=== PATIENT | female | born 1960 | race Caucasian/White ===

== ENCOUNTER 2018-09-21 17:30 | Emergency (ER) | payer MEDICAID ==
[~2018-09-21] VITALS: Ht 149.9 cm; Wt 65.8 kg
[2018-09-21 17:30] VITALS: BP 122/58
[~2018-09-21 17:30] MED LIST: ADVAIR; ALBUPOW26; NORCO; SERAQUIL; SOMA
[2018-09-21 18:34] LABS: Chloride 106 mmol/L (98-107); Potassium 3.9 mmol/L (3.5-5.1); Sodium 140 mmol/L (136-145)
[2018-09-21 18:41] LABS: Basophils # (auto) 0 uL; Basophils % (auto) 0.5 % (0.0-2.0); Eosinophils # (auto) 0.6 uL; Eosinophils % (auto) 9.8 % (0.0-7.0); Hematocrit 38.3 % (36.0-46.0); Lymphocytes # (auto) 1.8 uL; Lymphocytes % (auto) 27.7 % (10.0-50.0); Mean Corpuscular Hemoglobin 31.8 pg (28.0-32.0); Mean Corpuscular Hgb Conc. 33.9 g/dL (32.0-36.0); Mean Corpuscular Volume 93.9 fL (80.0-100.0); Monocytes # (auto) 0.6 uL; Monocytes % (auto) 9.6 % (0.0-12.0); Neutrophils # (auto) 3.4 uL; Neutrophils % (auto) 52.4 % (37.0-80.0); Platelet Count (auto) 231 10^3/uL (140-450); Red Blood Cells 4.08 10^6/uL (4.0-5.20); Red Cell Distribution Width 14.1 % (11.8-14.3); White Blood Cell 6.6 10^3/uL (4.4-10.8)
[2018-09-21 18:51] LABS: Alanine Aminotransferase 34 U/L (13-56); Albumin 3.6 g/dL (3.4-5.0); Alkaline Phosphatase 77 U/L (45-117); Anion Gap 6 (5-15); Aspartate Aminotransferase 24 U/L (15-37); BUN/Creatinine Ratio 30.8; Bilirubin, Total 0.2 mg/dL (0.2-1.0); Blood Urea Nitrogen 24 mg/dL (7-18); Calcium 8.7 mg/dL (8.5-10.1); Carbon Dioxide 28 mmol/L (21-32); GFR African American 98 mL/min; GFR Non-African American 81 mL/min; Glucose 91 mg/dL (74-106); Magnesium 2.3 mg/dL (1.6-2.6); Total Protein 7.4 g/dL (6.4-8.2)
[2018-09-21] MEDS ORDERED: methylPREDNISolone SOD SUCC 125 MG/2 ML VL IV ONE (19:45)
[2018-09-21] MEDS ORDERED: ALBUTEROL SULF 2.5 MG/0.5ML(0.5%) NEB SOLN HHN ONE (19:45)
[2018-09-21] MEDS ORDERED: IPRATROPIUM BROM 0.5 MG/2.5ML INH SOL HHN ONE (19:45)
== END 2018-09-21 21:27 | disposition home or self-care (01) ==
LOC: MERGE 17:36 → ER 17:36
DX: J45.901 Unspecified asthma with (acute) exacerbation (principal); F41.9 Anxiety disorder, unspecified; J45.909 Unspecified asthma, uncomplicated; F32.9 Major depressive disorder, single episode, unspecified; E11.9 Type 2 diabetes mellitus without complications; E78.5 Hyperlipidemia, unspecified; F17.210 Nicotine dependence, cigarettes, uncomplicated; G40.909 Epilepsy, unspecified, not intractable, without status epilepticus
CPT/HCPCS: 36415; 71046; 80053; 83735; 84484; 85025; 93005; 94644; 94761; 96374; 99285; J2930; J7611; J7644; 94640

== ENCOUNTER 2019-03-09 09:53 | Emergency (ER) | payer MEDICAID ==
[~2019-03-09] VITALS: Ht 147.3 cm; Wt 67.1 kg
[2019-03-09 10:18] VITALS: BP 131/79
[2019-03-09 10:27] LABS: Basophils # (auto) 0.1 uL; Eosinophils # (auto) 1.1 uL; Eosinophils % (auto) 13.5 % (0.0-7.0); Hematocrit 40.8 % (36.0-46.0); Hemoglobin 13.5 g/dL (12.2-16.2); Lymphocytes # (auto) 1.4 uL; Lymphocytes % (auto) 16.9 % (10.0-50.0); Mean Corpuscular Hemoglobin 30.4 pg (28.0-32.0); Mean Corpuscular Hgb Conc. 33.2 g/dL (32.0-36.0); Mean Corpuscular Volume 91.8 fL (80.0-100.0); Monocytes # (auto) 0.4 uL; Monocytes % (auto) 4.8 % (0.0-12.0); Neutrophils # (auto) 5.1 uL; Neutrophils % (auto) 63.8 % (37.0-80.0); Platelet Count (auto) 308 10^3/uL (140-450); Red Blood Cells 4.44 10^6/uL (4.0-5.20); Red Cell Distribution Width 14.5 % (11.8-14.3)
[2019-03-09 10:42] LABS: Calcium 8.8 mg/dL (8.5-10.1); Chloride 109 mmol/L (98-107); Potassium 3.7 mmol/L (3.5-5.1); Sodium 140 mmol/L (136-145)
[2019-03-09 10:45] LABS: Alanine Aminotransferase 19 U/L (13-56); Albumin 3.5 g/dL (3.4-5.0); Anion Gap 5 (5-15); Aspartate Aminotransferase 19 U/L (15-37); BUN/Creatinine Ratio 22.2; Blood Urea Nitrogen 14 mg/dL (7-18); Carbon Dioxide 26 mmol/L (21-32); GFR African American 125 mL/min; GFR Non-African American 103 mL/min; Glucose 120 mg/dL (74-106)
[2019-03-09 10:51] LABS: Alkaline Phosphatase 77 U/L (45-117); Bilirubin, Total 0.4 mg/dL (0.2-1.0); Total Protein 7.5 g/dL (6.4-8.2)
[2019-03-09] MEDS ORDERED: MORPHINE SULFATE 4 MG/ML SYR/VIAL IV ONE (11:30)
[2019-03-09] MEDS ORDERED: ONDANSETRON HCL 4 MG/2 ML VIAL IV ONE (11:30)
== END 2019-03-09 11:42 | disposition home or self-care (01) ==
LOC: ER 09:53
DX: K52.9 Noninfective gastroenteritis and colitis, unspecified (principal); R19.7 Diarrhea, unspecified; F12.10 Cannabis abuse, uncomplicated; Z90.89 Acquired absence of other organs
CPT/HCPCS: 36415; 74176; 80053; 84484; 85025

== ENCOUNTER 2019-05-22 11:45 | Emergency (ER) | payer MEDICAID ==
[~2019-05-22] VITALS: Ht 149.9 cm; Wt 64.4 kg
[2019-05-22] MEDS ORDERED: SODIUM CHLORIDE 0.9% 1,000 ML IVB ONE (12:26)
[2019-05-22 13:03] LABS: Basophils # (auto) 0 uL; Basophils % (auto) 0.6 % (0.0-2.0); Eosinophils # (auto) 0.4 uL; Eosinophils % (auto) 4.7 % (0.0-7.0); Hematocrit 38.7 % (36.0-46.0); Hemoglobin 12.8 g/dL (12.2-16.2); Lymphocytes # (auto) 1.8 uL; Lymphocytes % (auto) 21.7 % (10.0-50.0); Mean Corpuscular Hemoglobin 30.2 pg (28.0-32.0); Mean Corpuscular Hgb Conc. 33.2 g/dL (32.0-36.0); Mean Corpuscular Volume 91.1 fL (80.0-100.0); Monocytes # (auto) 0.6 uL; Monocytes % (auto) 7.1 % (0.0-12.0); Neutrophils # (auto) 5.3 uL; Neutrophils % (auto) 65.9 % (37.0-80.0); Platelet Count (auto) 275 10^3/uL (140-450); Red Blood Cells 4.25 10^6/uL (4.0-5.20); Red Cell Distribution Width 15.4 % (11.8-14.3); White Blood Cell 8.1 10^3/uL (4.4-10.8)
[2019-05-22] MEDS ORDERED: IBUPROFEN 800 MG TAB PO ONE (13:15)
[2019-05-22 13:24] LABS: Albumin 3.5 g/dL (3.4-5.0); Anion Gap 7 (5-15); Blood Urea Nitrogen 14 mg/dL (7-18); Carbon Dioxide 26 mmol/L (21-32); Chloride 103 mmol/L (98-107); GFR African American 73 mL/min; GFR Non-African American 61 mL/min; Glucose 100 mg/dL (74-106); Potassium 4.1 mmol/L (3.5-5.1); Sodium 136 mmol/L (136-145)
[2019-05-22 13:28] LABS: Alkaline Phosphatase 111 U/L (45-117); Aspartate Aminotransferase 24 U/L (15-37); Bilirubin, Total 0.5 mg/dL (0.2-1.0)
[2019-05-22] MEDS ORDERED: SODIUM CHLORIDE 0.9% 1,000 ML IV ONE (13:35)
[2019-05-22 13:53] LABS: Alanine Aminotransferase 43 U/L (13-56)
[2019-05-22 14:37] LABS: Urine Bacteria FEW /hpf (None Seen); Urine Blood Negative /uL (Negative); Urine Specific Gravity 1.006 (1.001-1.035); Urine WBC 1 /hpf (0 - 5)
[2019-05-22] MEDS ORDERED: HYDROcodone-ACET 5/325MG TAB PO ONE (15:15)
[2019-05-22 16:40] VITALS: BP 109/63
== END 2019-05-22 17:05 | disposition home or self-care (01) ==
LOC: ER 11:49
DX: J20.9 Acute bronchitis, unspecified (principal); J01.90 Acute sinusitis, unspecified; E03.9 Hypothyroidism, unspecified; R42 Dizziness and giddiness; Z87.891 Personal history of nicotine dependence
CPT/HCPCS: 36415; 71045; 80053; 81001; 83605; 83735; 84443; 84484; 85025; 87040; 87804; 93005; 96360; 96361; 99284; J7030

== ENCOUNTER 2021-03-20 13:04 | Inpatient (IN) | payer MEDICAID ==
[~2021-03-20] VITALS: Ht 152.4 cm; Wt 69.3 kg
[~2021-03-20 13:04] MED LIST changes: +HYDR-4833; -NORCO
[2021-03-20] MEDS ORDERED: SODIUM CHLORIDE 0.9% 1,000 ML IVB ONE (13:45)
[2021-03-20] MEDS ORDERED: LORazepam 2MG/ML-1ML VIAL ONE (13:51)
[2021-03-20] MEDS ORDERED: LORazepam 2MG/ML-1ML VIAL IV ONE (14:00)
[2021-03-20] MEDS ORDERED: HYDROcodone-ACET 10/325MG TAB PO ONE (14:30)
[2021-03-20 14:38] LABS: Basophils # (auto) 0 10 ^3/uL (0-0.2); Basophils % (auto) 0.5 % (0.0-2.0); Eosinophils # (auto) 0.2 10 ^3/uL (0-0.8); Eosinophils % (auto) 3.7 % (0.0-7.0); Hematocrit 38.1 % (36.0-46.0); Hemoglobin 12.9 g/dL (12.2-16.2); Lymphocytes # (auto) 2.1 10 ^3/uL (0.4-5.4); Mean Corpuscular Hemoglobin 31.1 pg (28.0-32.0); Mean Corpuscular Hgb Conc. 33.8 g/dL (32.0-36.0); Mean Corpuscular Volume 91.8 fL (80.0-100.0); Monocytes # (auto) 0.6 10 ^3/uL (0-1.3); Monocytes % (auto) 9.6 % (0.0-12.0); Neutrophils # (auto) 3.4 10 ^3/uL (1.6-8.6); Neutrophils % (auto) 53.2 % (37.0-80.0); Red Blood Cells 4.15 10^6/uL (4.0-5.20); Red Cell Distribution Width 14.4 % (11.8-14.3); White Blood Cell 6.4 10^3/uL (4.4-10.8)
[2021-03-20 14:53] LABS: Albumin 3.4 g/dL (3.4-5.0); Calcium 8.3 mg/dL (8.5-10.1); Magnesium 2.2 mg/dL (1.6-2.6); Potassium 4.2 mmol/L (3.5-5.1)
[2021-03-20 14:58] LABS: BUN/Creatinine Ratio 18.1; Bilirubin, Total 0.7 mg/dL (0.2-1.0); Total Protein 7.1 g/dL (6.4-8.2)
[2021-03-20] MEDS ORDERED: NITROGLYCERIN 0.4 MG SL TAB SL PRN (15:15)
[2021-03-20] MEDS ORDERED: ONDANSETRON HCL 4 MG/2 ML VIAL IV PRN (15:15)
[2021-03-20] MEDS ORDERED: MORPHINE SULFATE INJECTION 2 MG/ML SYRG IV PRN (15:15)
[2021-03-20] MEDS ORDERED: ACETAMINOPHEN 325 MG TAB PO PRN (15:15)
[2021-03-20] MEDS ORDERED: LORazepam 2MG/ML-1ML VIAL IV PRN ×2 (15:30→23:30)
[2021-03-20] MEDS ORDERED: diphenhdrAMINE HCL 50 MG/1 ML VL IV PRN (16:30)
[2021-03-20] MEDS: MORPHINE SULFATE 4 MG/ML SYR/VIAL IV PRN ×2 (16:55→21:31)
[2021-03-20] MEDS: SODIUM CHLORIDE 0.9% 1,000 ML IV SCH ×2 (17:16→23:44)
[2021-03-20] MEDS: HYDROcodone-ACET 5/325MG TAB PO PRN ×2 (18:47→23:52)
[2021-03-20 22:00] VITALS: BP 110/65
[2021-03-20 22:53] LABS: Urine Bacteria FEW /hpf (None Seen); Urine Blood Negative /uL (Negative); Urine Specific Gravity 1.007 (1.001-1.035); Urine WBC 2 /hpf (0 - 5)
[2021-03-21] MEDS: MORPHINE SULFATE 4 MG/ML SYR/VIAL IV PRN ×3 (01:32→09:59)
[2021-03-21] MEDS: HYDROcodone-ACET 5/325MG TAB PO PRN ×2 (04:24→08:43)
[2021-03-21 05:00] VITALS: BP 126/67
[2021-03-21 05:59] LABS: Basophils # (auto) 0 10 ^3/uL (0-0.2); Basophils % (auto) 0.4 % (0.0-2.0); Eosinophils # (auto) 0.3 10 ^3/uL (0-0.8); Eosinophils % (auto) 4.6 % (0.0-7.0); Hematocrit 36.5 % (36.0-46.0); Hemoglobin 11.9 g/dL (12.2-16.2); Lymphocytes # (auto) 2.2 10 ^3/uL (0.4-5.4); Lymphocytes % (auto) 38.8 % (10.0-50.0); Mean Corpuscular Hemoglobin 30.5 pg (28.0-32.0); Mean Corpuscular Hgb Conc. 32.7 g/dL (32.0-36.0); Mean Corpuscular Volume 93.1 fL (80.0-100.0); Monocytes # (auto) 0.6 10 ^3/uL (0-1.3); Monocytes % (auto) 10.8 % (0.0-12.0); Neutrophils # (auto) 2.5 10 ^3/uL (1.6-8.6); Neutrophils % (auto) 45.4 % (37.0-80.0); Nucleated Red Blood Cells % 0.1 %; Red Blood Cells 3.92 10^6/uL (4.0-5.20); Red Cell Distribution Width 14.6 % (11.8-14.3); White Blood Cell 5.6 10^3/uL (4.4-10.8)
[2021-03-21 06:29] LABS: Potassium 4.2 mmol/L (3.5-5.1)
[2021-03-21 06:36] LABS: Albumin 3.1 g/dL (3.4-5.0); BUN/Creatinine Ratio 22.1; Bilirubin, Total 0.7 mg/dL (0.2-1.0); Calcium 7.9 mg/dL (8.5-10.1)
[2021-03-21] MEDS: SODIUM CHLORIDE 0.9% 1,000 ML IV SCH ×3 (07:55→22:10)
[2021-03-21] MEDS: levETIRAcetam 500 MG TAB PO SCH ×2 (08:45→22:04)
[2021-03-21] MEDS: ENOXAPARIN SOD 40 MG/0.4 ML SYRINGE SC SCH (08:46)
[2021-03-21 09:00] VITALS: BP 115/71
[2021-03-21] MEDS: ALPRAZolam 0.5 MG TAB PO PRN (11:57)
[2021-03-21 13:00] VITALS: BP 122/71
[2021-03-21] MEDS: HYDROmorphone HCL 2 MG/ML VL IV PRN ×3 (13:20→21:02)
[2021-03-21] MEDS ORDERED: MIDO2.5T3 PO (13:32)
[2021-03-21] MEDS ORDERED: ROSU1TAB12 PO (13:32)
[2021-03-21] MEDS ORDERED: DOCU100T15 PO (13:32)
[2021-03-21] MEDS ORDERED: LEVE500T32 PO (13:32)
[2021-03-21] MEDS ORDERED: LEVO25TA6 PO (13:32)
[2021-03-21] MEDS ORDERED: CITA10TA70 PO (13:32)
[2021-03-21] MEDS ORDERED: FOLI1TAB6 PO (13:32)
[2021-03-21] MEDS ORDERED: HYDR-4833 PO (13:32)
[2021-03-21] MEDS ORDERED: ALPR0.25 PO (13:32)
[2021-03-21] MEDS: HYDROcodone-ACET 10/325MG TAB PO PRN ×2 (15:54→22:00)
[2021-03-21 16:46] VITALS: BP 119/68
[2021-03-21 22:02] VITALS: BP 121/70
[2021-03-21] MEDS: DOCUSATE SOD 100 MG CAP PO SCH (22:04)
[2021-03-22] MEDS: HYDROmorphone HCL 2 MG/ML VL IV PRN ×8 (00:13→23:19)
[2021-03-22 05:01] VITALS: BP 134/70
[2021-03-22] MEDS: LEVOTHYROXINE SODIUM 25 MCG TAB PO SCH (07:00)
[2021-03-22] MEDS: SODIUM CHLORIDE 0.9% 1,000 ML IV SCH ×2 (07:04→17:15)
[2021-03-22 09:00] VITALS: BP 120/66
[2021-03-22] MEDS: HYDROcodone-ACET 10/325MG TAB PO PRN ×2 (09:11→15:42)
[2021-03-22] MEDS: FOLIC ACID 1 MG TAB PO SCH (10:05)
[2021-03-22] MEDS: levETIRAcetam 500 MG TAB PO SCH (10:05)
[2021-03-22] MEDS: CITALOPRAM HYDROBR 20 MG TAB PO SCH (10:05)
[2021-03-22] MEDS: DOCUSATE SOD 100 MG CAP PO SCH ×2 (10:05→21:52)
[2021-03-22] MEDS: CHOLECALCIFEROL (VITD3) 1,000UNIT=25mCg TAB PO SCH (10:06)
[2021-03-22] MEDS: ENOXAPARIN SOD 40 MG/0.4 ML SYRINGE SC SCH (10:06)
[2021-03-22 13:00] VITALS: BP 140/70
[2021-03-22] MEDS: LORazepam 2MG/ML-1ML VIAL IV PRN (13:11)
[2021-03-22] MEDS: ALPRAZolam 0.5 MG TAB PO PRN (15:04)
[2021-03-22 17:00] VITALS: BP 158/76
[2021-03-22 21:58] VITALS: BP 143/76
[2021-03-23] MEDS: HYDROcodone-ACET 10/325MG TAB PO PRN ×3 (00:04→23:50)
[2021-03-23] MEDS: HYDROmorphone HCL 2 MG/ML VL IV PRN ×6 (02:59→22:20)
[2021-03-23 05:24] VITALS: BP 144/59
[2021-03-23] MEDS: LEVOTHYROXINE SODIUM 25 MCG TAB PO SCH (06:19)
[2021-03-23] MEDS: SODIUM CHLORIDE 0.9% 1,000 ML IV SCH ×3 (06:19→18:15)
[2021-03-23 09:00] VITALS: BP 149/71
[2021-03-23] MEDS: FOLIC ACID 1 MG TAB PO SCH (09:52)
[2021-03-23] MEDS: CITALOPRAM HYDROBR 20 MG TAB PO SCH (09:52)
[2021-03-23] MEDS: DOCUSATE SOD 100 MG CAP PO SCH ×2 (09:52→20:40)
[2021-03-23] MEDS: levETIRAcetam 500 MG TAB PO SCH ×2 (09:52→20:41)
[2021-03-23] MEDS: ENOXAPARIN SOD 40 MG/0.4 ML SYRINGE SC SCH (09:53)
[2021-03-23] MEDS: CHOLECALCIFEROL (VITD3) 1,000UNIT=25mCg TAB PO SCH (09:53)
[2021-03-23] MEDS: LORazepam 2MG/ML-1ML VIAL IV PRN (12:04)
[2021-03-23 13:00] VITALS: BP 150/91
[2021-03-23 17:00] VITALS: BP 138/64
[2021-03-23] MEDS ORDERED: VALPROATE INJ 500 MG in SODIUM CHL 0.9% 100 ML IV ONE (17:30)
[2021-03-23] MEDS ORDERED: HYDROmorphone HCL 2 MG/ML VL IV ONE ×2 (18:30→18:45)
[2021-03-23] MEDS: ALPRAZolam 0.5 MG TAB PO PRN (20:41)
[2021-03-23 22:00] VITALS: BP 138/70
[2021-03-24] MEDS: HYDROmorphone HCL 2 MG/ML VL IV PRN ×4 (01:23→18:18)
[2021-03-24] MEDS: LORazepam 2MG/ML-1ML VIAL IV PRN ×3 (01:58→14:47)
[2021-03-24 02:00] VITALS: BP 150/84
[2021-03-24 05:00] VITALS: BP 131/71
[2021-03-24] MEDS: SODIUM CHLORIDE 0.9% 1,000 ML IV SCH ×4 (05:55→22:20)
[2021-03-24] MEDS: LEVOTHYROXINE SODIUM 25 MCG TAB PO SCH (06:52)
[2021-03-24 09:00] VITALS: BP 143/66
[2021-03-24] MEDS: levETIRAcetam 500 MG TAB PO SCH ×2 (10:00→22:14)
[2021-03-24] MEDS: CHOLECALCIFEROL (VITD3) 1,000UNIT=25mCg TAB PO SCH (10:00)
[2021-03-24 13:00] VITALS: BP 122/92
[2021-03-24] MEDS: ENOXAPARIN SOD 40 MG/0.4 ML SYRINGE SC SCH (13:21)
[2021-03-24] MEDS: FOLIC ACID 1 MG TAB PO SCH (13:21)
[2021-03-24] MEDS: CITALOPRAM HYDROBR 20 MG TAB PO SCH (13:22)
[2021-03-24] MEDS: DOCUSATE SOD 100 MG CAP PO SCH ×2 (13:22→22:14)
[2021-03-24 17:00] VITALS: BP 147/70
[2021-03-24 22:00] VITALS: BP 129/73
[2021-03-25] MEDS: HYDROmorphone HCL 2 MG/ML VL IV PRN ×5 (02:18→17:06)
[2021-03-25 05:00] VITALS: BP 152/72
[2021-03-25 06:02] LABS: Basophils # (auto) 0 10 ^3/uL (0-0.2); Basophils % (auto) 0.6 % (0.0-2.0); Eosinophils # (auto) 0.3 10 ^3/uL (0-0.8); Eosinophils % (auto) 4.5 % (0.0-7.0); Hematocrit 35.5 % (36.0-46.0); Lymphocytes # (auto) 2.3 10 ^3/uL (0.4-5.4); Lymphocytes % (auto) 39.5 % (10.0-50.0); Mean Corpuscular Hemoglobin 31.3 pg (28.0-32.0); Mean Corpuscular Hgb Conc. 33.9 g/dL (32.0-36.0); Mean Corpuscular Volume 92.3 fL (80.0-100.0); Monocytes # (auto) 0.5 10 ^3/uL (0-1.3); Monocytes % (auto) 9.6 % (0.0-12.0); Neutrophils # (auto) 2.6 10 ^3/uL (1.6-8.6); Neutrophils % (auto) 45.8 % (37.0-80.0); Nucleated Red Blood Cells % 0.1 %; Red Blood Cells 3.84 10^6/uL (4.0-5.20); Red Cell Distribution Width 14.3 % (11.8-14.3); White Blood Cell 5.7 10^3/uL (4.4-10.8)
[2021-03-25 06:14] LABS: Calcium 8.5 mg/dL (8.5-10.1); Potassium 3.9 mmol/L (3.5-5.1)
[2021-03-25 06:18] LABS: BUN/Creatinine Ratio 15.8; Magnesium 2.2 mg/dL (1.6-2.6)
[2021-03-25] MEDS: LEVOTHYROXINE SODIUM 25 MCG TAB PO SCH (07:04)
[2021-03-25] MEDS: ALPRAZolam 0.5 MG TAB PO PRN (07:15)
[2021-03-25 09:00] VITALS: BP 146/65
[2021-03-25] MEDS: FOLIC ACID 1 MG TAB PO SCH (10:17)
[2021-03-25] MEDS: CHOLECALCIFEROL (VITD3) 1,000UNIT=25mCg TAB PO SCH (10:18)
[2021-03-25] MEDS: CITALOPRAM HYDROBR 20 MG TAB PO SCH (10:18)
[2021-03-25] MEDS: DOCUSATE SOD 100 MG CAP PO SCH ×2 (10:18→21:37)
[2021-03-25] MEDS: ENOXAPARIN SOD 40 MG/0.4 ML SYRINGE SC SCH (10:18)
[2021-03-25] MEDS: levETIRAcetam 500 MG TAB PO SCH ×3 (10:18→22:15)
[2021-03-25 13:00] VITALS: BP 130/64
[2021-03-25 17:00] VITALS: BP 141/73
[2021-03-25] MEDS: HYDROcodone-ACET 10/325MG TAB PO PRN (18:47)
[2021-03-25 22:00] VITALS: BP 152/77
[2021-03-25] MEDS: LORazepam 2MG/ML-1ML VIAL IV PRN (22:05)
[2021-03-26] MEDS: HYDROcodone-ACET 10/325MG TAB PO PRN ×2 (01:05→14:48)
[2021-03-26] MEDS: HYDROmorphone HCL 2 MG/ML VL IV PRN ×3 (01:26→08:37)
[2021-03-26 05:00] VITALS: BP 133/67
[2021-03-26] MEDS: ALPRAZolam 0.5 MG TAB PO PRN (05:18)
[2021-03-26] MEDS: LEVOTHYROXINE SODIUM 25 MCG TAB PO SCH (06:38)
[2021-03-26 08:00] VITALS: BP 153/71
[2021-03-26] MEDS: FOLIC ACID 1 MG TAB PO SCH (08:37)
[2021-03-26] MEDS: DOCUSATE SOD 100 MG CAP PO SCH (08:38)
[2021-03-26] MEDS: CHOLECALCIFEROL (VITD3) 1,000UNIT=25mCg TAB PO SCH (08:38)
[2021-03-26] MEDS: CITALOPRAM HYDROBR 20 MG TAB PO SCH (08:38)
[2021-03-26] MEDS: ENOXAPARIN SOD 40 MG/0.4 ML SYRINGE SC SCH (08:38)
[2021-03-26] MEDS: levETIRAcetam 500 MG TAB PO SCH (08:38)
[2021-03-26 12:00] VITALS: BP 133/61
[2021-03-26 15:14] VITALS: BP 118/63
== END 2021-03-26 16:35 | disposition home health service (06) | DRG 53 ==
LOC: ER 13:04 → EDBD 13:04 → TELE 15:14 → TELE-WESTW 19:09
PROVIDERS: ADMIT Internal Medicine; ATTEND Internal Medicine
DX: G40.209 Localization-related (focal) (partial) symptomatic epilepsy and epileptic syndromes with complex partial seizures, not intractable, without status epilepticus (principal); E27.40 Unspecified adrenocortical insufficiency; I95.9 Hypotension, unspecified; Z20.822 Contact with and (suspected) exposure to COVID-19; E03.9 Hypothyroidism, unspecified; M54.50 Low back pain, unspecified; F11.20 Opioid dependence, uncomplicated; M06.9 Rheumatoid arthritis, unspecified; G89.4 Chronic pain syndrome; F41.9 Anxiety disorder, unspecified; Z79.899 Other long term (current) drug therapy; Z80.9 Family history of malignant neoplasm, unspecified; Z82.49 Family history of ischemic heart disease and other diseases of the circulatory system; Z83.3 Family history of diabetes mellitus; Z87.891 Personal history of nicotine dependence; Z91.14 Patient's other noncompliance with medication regimen; Z90.49 Acquired absence of other specified parts of digestive tract; Z98.1 Arthrodesis status
CPT/HCPCS: 36415; 70450; 70551; 71045; 80048; 80053; 81001; 82085; 82533; 82550; 83735; 84146; 84443; 85025; 87426; 93005; 95819; 96361; 96374; 97163; 99291; G0378; J7060

== ENCOUNTER 2021-12-04 10:10 | Outpatient (CLI) | payer MEDICAID ==
[~2021-12-04] VITALS: Ht 147.3 cm; Wt 68.9 kg
[~2021-12-04 10:10] MED LIST changes: +ALPR0.25 PO; +CITA10TA70 PO; +DOCU100T15 PO; +FOLI1TAB6 PO; +HYDR-4833 PO; +LEVE500T32 PO; +LEVO25TA6 PO; +MIDO2.5T3 PO; +ROSU1TAB12 PO
[2021-12-05] MEDS ORDERED: LACO50TA2 PO (12:39)
[2021-12-05] MEDS ORDERED: PREG50CA PO (12:39)
[2021-12-05] MEDS ORDERED: ASCO500T11 PO (12:39)
[2021-12-05] MEDS ORDERED: ZINC100T5 PO (12:39)
[2021-12-05] MEDS ORDERED: TIZA2CAP7 PO (12:39)
== END 2021-12-04 10:30 | disposition home or self-care (01) ==
LOC: LAB 10:10 → EDSTATUS 12-06 10:30
PROVIDERS: ATTEND Urology
DX: N39.46 Mixed incontinence (principal); Z53.8 Procedure and treatment not carried out for other reasons; I20.9 Angina pectoris, unspecified; F41.9 Anxiety disorder, unspecified; F31.9 Bipolar disorder, unspecified; Z86.2 Personal history of diseases of the blood and blood-forming organs and certain disorders involving the immune mechanism; Z82.49 Family history of ischemic heart disease and other diseases of the circulatory system; Z81.1 Family history of alcohol abuse and dependence; Z81.8 Family history of other mental and behavioral disorders; Z20.822 Contact with and (suspected) exposure to COVID-19

== ENCOUNTER 2021-12-27 08:07 | Day surgery (SDC) | payer MEDICAID ==
[~2021-12-27] VITALS: Ht 147.3 cm; Wt 68.9 kg
[~2021-12-27 08:07] MED LIST changes: +ASCO500T11 PO; -CITA10TA70 PO; -DOCU100T15 PO; -HYDR-4833; +LACO50TA2 PO; -LEVE500T32 PO; -MIDO2.5T3 PO; +PREG50CA PO; -SERAQUIL; -SOMA; +TIZA2CAP7 PO; +ZINC100T5 PO
[2021-12-27] MEDS ORDERED: ETOMIDATE (2MG/ML) 20ML VIAL IV ONE (08:08)
[2021-12-27] MEDS ORDERED: ONDANSETRON HCL 4 MG/2 ML VIAL IV ONE (08:08)
[2021-12-27] MEDS ORDERED: LIDOCAINE 1%-Mpf/Epinephrine 1:200,000 ONE (08:58)
[2021-12-27] MEDS ORDERED: CONJ ESTROGENS 0.625MG/GM VAG CRM 30GM PV ONE (08:59)
[2021-12-27] MEDS ORDERED: MIDAZOLAM HCL 2MG/2ML 2ml VIAL (1mg/ml) ONE ×2 (09:13→09:55)
[2021-12-27] MEDS ORDERED: fentaNYL CITRATE 100 MCG/2 ML VL ONE (09:13)
[2021-12-27] MEDS ORDERED: MEPERIDINE HCL (50 MG/ML) 1 ML VIAL ONE (09:13)
[2021-12-27] MEDS ORDERED: DexAMETHasone SOD PHOS 10MG/1ML VIAL INJ ONE (09:23)
[2021-12-27] MEDS ORDERED: PROPOFOL 10 MG/ML 20 ML IV ONE (09:24)
[2021-12-27] MEDS ORDERED: CIPROFLOXACIN 400MG/200ML 200 ML IV ONE (09:31)
[2021-12-27] MEDS ORDERED: MIDAZOLAM HCL 2MG/2ML 2ml VIAL (1mg/ml) IV PRN (10:00)
[2021-12-27] MEDS ORDERED: ePHEDrine SULFATE 50 MG/ML AMP IV PRN (10:00)
[2021-12-27] MEDS ORDERED: MORPHINE SULFATE 4 MG/ML SYR/VIAL IV PRN (10:00)
[2021-12-27] MEDS ORDERED: fentaNYL CITRATE 100 MCG/2 ML VL IV PRN (10:00)
[2021-12-27] MEDS ORDERED: ONDANSETRON HCL 4 MG/2 ML VIAL IV PRN (10:00)
[2021-12-27] MEDS ORDERED: LABETALOL HCL 5 MG/ML 4ML SYRINGE IV PRN (10:00)
[2021-12-27] MEDS ORDERED: METOCLOPRAMIDE HCL 5MG/ml INJ 2ml VIAL IV PRN (10:00)
[2021-12-27] MEDS ORDERED: NEOMYCIN-BACITRACIN-POLYM 15GM TOP OINT TOP ONE (10:21)
[2021-12-27] MEDS: HYDROmorphone HCL 2 MG/ML VL/or syr IV PRN ×2 (11:00→11:35)
[2021-12-27] MEDS ORDERED: HYDROmorphone HCL 2 MG/ML VL/or syr IV ONE ×2 (11:10→11:20)
[2021-12-27] MEDS ORDERED: HYDROcodone-ACET 10/325MG TAB PO ONE (13:00)
[2021-12-27 13:30] VITALS: BP 121/67
== END 2021-12-27 13:55 | disposition home or self-care (01) ==
LOC: SUR 08:07
PROVIDERS: ATTEND Urology
DX: N39.3 Stress incontinence (female) (male) (principal); I10 Essential (primary) hypertension; E03.9 Hypothyroidism, unspecified; E11.40 Type 2 diabetes mellitus with diabetic neuropathy, unspecified; I27.20 Pulmonary hypertension, unspecified; Z98.890 Other specified postprocedural states; Z79.899 Other long term (current) drug therapy; Z90.49 Acquired absence of other specified parts of digestive tract; Z98.891 History of uterine scar from previous surgery; Z87.891 Personal history of nicotine dependence; Z82.49 Family history of ischemic heart disease and other diseases of the circulatory system; Z80.8 Family history of malignant neoplasm of other organs or systems; Z81.1 Family history of alcohol abuse and dependence; Z20.822 Contact with and (suspected) exposure to COVID-19
CPT/HCPCS: 57288; C1781; J0744; J1100; J1170; J2001; J2175; J2250; J2405; J2704; J3010; U0003

== ENCOUNTER 2021-12-31 11:58 | Emergency (ER) | payer MEDICAID ==
[~2021-12-31] VITALS: Ht 157.5 cm; Wt 65.9 kg
[2021-12-31 12:52] LABS: Basophils # (auto) 0 10 ^3/uL (0-0.2); Basophils % (auto) 0.4 % (0.0-2.0); Eosinophils # (auto) 0.3 10 ^3/uL (0-0.8); Eosinophils % (auto) 4.3 % (0.0-7.0); Hematocrit 37.1 % (36.0-46.0); Lymphocytes # (auto) 1.8 10 ^3/uL (0.4-5.4); Lymphocytes % (auto) 30.4 % (10.0-50.0); Mean Corpuscular Hemoglobin 28.1 pg (28.0-32.0); Mean Corpuscular Hgb Conc. 32.3 g/dL (32.0-36.0); Mean Corpuscular Volume 86.8 fL (80.0-100.0); Monocytes # (auto) 0.6 10 ^3/uL (0-1.3); Monocytes % (auto) 9.8 % (0.0-12.0); Neutrophils # (auto) 3.3 10 ^3/uL (1.6-8.6); Neutrophils % (auto) 55.1 % (37.0-80.0); Red Blood Cells 4.27 10^6/uL (4.0-5.20); Red Cell Distribution Width 13.5 % (11.8-14.3); White Blood Cell 5.9 10^3/uL (4.4-10.8)
[2021-12-31 13:07] LABS: Albumin 2.8 g/dL (3.4-5.0); Calcium 8.1 mg/dL (8.5-10.1); Potassium 3.2 mmol/L (3.5-5.1)
[2021-12-31 13:09] LABS: Bilirubin, Total 0.1 mg/dL (0.2-1.0); Total Protein 6.8 g/dL (6.4-8.2)
[2021-12-31] MEDS: HYDROcodone-ACET 10/325MG TAB PO ONE (13:52)
[2021-12-31 13:59] VITALS: BP 134/62
[2021-12-31] MEDS: POTASSIUM CHL 20 Meq TABLET PO ONE (14:29)
== END 2021-12-31 18:54 | disposition home or self-care (01) ==
LOC: EDBD 11:58 → ER 11:58
DX: K42.9 Umbilical hernia without obstruction or gangrene (principal); E87.6 Hypokalemia; M54.50 Low back pain, unspecified; Z20.822 Contact with and (suspected) exposure to COVID-19
CPT/HCPCS: 36415; 74176; 80053; 82150; 83605; 83690; 84484; 85025; 87040; 93005

== ENCOUNTER 2022-11-29 12:23 | Emergency (ER) | payer MEDICAID ==
[~2022-11-29] VITALS: Ht 162.6 cm; Wt 81.8 kg
[~2022-11-29 12:23] MED LIST changes: +FOLI-119 PO; -FOLI1TAB6 PO
[2022-11-29] MEDS ORDERED: SODIUM CHLORIDE 0.9% 500 ML IV ONE (12:45)
[2022-11-29 13:21] LABS: Basophils # (auto) 0.1 10 ^3/uL (0-0.2); Eosinophils # (auto) 0.2 10 ^3/uL (0-0.8); Nucleated Red Blood Cells % 0.1 %
[2022-11-29 13:23] LABS: Basophils % (auto) 0.7 % (0.0-2.0); Eosinophils % (auto) 2.6 % (0.0-7.0); Hematocrit 34.9 % (36.0-46.0); Lymphocytes # (auto) 2.2 10 ^3/uL (0.4-5.4); Mean Corpuscular Hemoglobin 24.5 pg (28.0-32.0); Mean Corpuscular Hgb Conc. 31.5 g/dL (32.0-36.0); Mean Corpuscular Volume 77.6 fL (80.0-100.0); Monocytes # (auto) 0.7 10 ^3/uL (0-1.3); Monocytes % (auto) 8.8 % (0.0-12.0); Neutrophils # (auto) 4.4 10 ^3/uL (1.6-8.6); Neutrophils % (auto) 58.9 % (37.0-80.0); Red Cell Distribution Width 17.2 % (11.8-14.3); White Blood Cell 7.4 10^3/uL (4.4-10.8)
[2022-11-29 13:41] LABS: Albumin 3.6 g/dL (3.4-5.0); Calcium 8.5 mg/dL (8.5-10.1); Magnesium 2.4 mg/dL (1.6-2.6)
[2022-11-29 13:45] LABS: BUN/Creatinine Ratio 16.8 (10.0-20.0); Bilirubin, Total 0.4 mg/dL (0.2-1.0)
[2022-11-29 13:48] LABS: INR 1.09 (0.9-1.15); Partial Thromboplastin Time 29.8 SEC (24.5-34.5)
[2022-11-29] MEDS ORDERED: NOREPINEPHRINE 8 MG/250ML KIT 250 ML IV ONE (14:34)
[2022-11-29] MEDS ORDERED: NOREPINEPHRINE 8 MG/250ML KIT 250 ML IV SCH (14:45)
[2022-11-29] MEDS ORDERED: PREGABALIN CAPSULE 75 MG CAP PO ONE (17:00)
[2022-11-29 18:53] VITALS: BP 139/73
== END 2022-11-29 19:06 | disposition home or self-care (01) ==
LOC: EDBD 12:23 → ER 12:23
DX: R53.1 Weakness (principal); R51.9 Headache, unspecified; I10 Essential (primary) hypertension; R42 Dizziness and giddiness; Z87.891 Personal history of nicotine dependence; Z79.899 Other long term (current) drug therapy; Z79.01 Long term (current) use of anticoagulants
CPT/HCPCS: 36415; 70450; 71045; 74176; 80053; 83735; 84484; 85025; 85379; 85610; 85730; 93005; 96361; 96365; 96366; 99285; J7040

== ENCOUNTER 2023-01-14 20:02 | Emergency (ER) | payer MEDICAID ==
[~2023-01-14] VITALS: Ht 160 cm; Wt 84.9 kg
[2023-01-14 20:20] VITALS: BP 128/99; PULSE 76; RESP 20; O2SAT 98
== END 2023-01-14 20:33 | disposition left against medical advice (07) ==
LOC: EDBD 20:02 → ER 20:02
DX: R51.9 Headache, unspecified (principal); Z53.21 Procedure and treatment not carried out due to patient leaving prior to being seen by health care provider